=== PATIENT | male | born 1945 | race Caucasian/White ===

== ENCOUNTER 2016-12-07 14:36 | Emergency (ER) | payer OTHER ==
[~2016-12-07] VITALS: Ht 170.2 cm; Wt 70.0 kg
[2016-12-07 14:59] VITALS: Ht 170.2 cm; Wt 70.0 kg
[2016-12-07] MEDS ORDERED: SOD CHLORIDE 0.9% 2,170 ML IV ONE (15:30)
[2016-12-07 15:39] LABS: ADD SCAN DIFF NO
[2016-12-07] MEDS ORDERED: ATOR10TA65 PO (15:55)
[2016-12-07] MEDS ORDERED: LEVO125T75 PO (15:56)
[2016-12-07 16:00] LABS: ALANINE AMINOTRANSFERASE 33 IU/L (13-69); ALBUMIN 3.7 g/dl (3.3-4.9); ALKALINE PHOSPHATASE 89 IU/L (42-121); ANION GAP 14 (8-16); ASPARTATE AMINO TRANSFERASE 19 IU/L (15-46); BILIRUBIN,INDIRECT 0.4 mg/dl (0-1.1); BILIRUBIN,TOTAL 0.4 mg/dl (0.2-1.3); BLOOD UREA NITROGEN 17 mg/dl (7-20); CALCIUM 9.5 mg/dl (8.4-10.2); CARBON DIOXIDE 27 mmol/L (21-31); CHLORIDE 103 mmol/L (97-110); CREATININE 0.83 mg/dl (0.61-1.24); GLUCOSE 143 mg/dl (70-220); SODIUM 140 mmol/L (135-144); TOTAL PROTEIN 6.8 g/dl (6.1-8.1)
[2016-12-07 16:01] LABS: ALBUMIN/GLOBULIN RATIO 1.19
[2016-12-07 16:09] LABS: ABNORMAL IP MESSAGE 1; HEMOGLOBIN 16.1 g/dl (14.0-18.0); INR 1.22; MEAN CORPUSCULAR HEMOGLOBIN 30.8 pg (29.0-33.0); MEAN CORPUSCULAR HGB CONC 35.8 g/dl (32.0-37.0); MEAN PLATELET VOLUME 10.4 fl (7.4-10.4); PLATELET COUNT 153 10^3/UL (140-415); PROTIME 15.5 Sec (12.2-14.2); PT RATIO 1.2; RED BLOOD COUNT 5.23 10^6/ul (4.70-6.10); RED CELL DISTRIBUTION WIDTH 14.9 % (11.5-14.5); WHITE BLOOD COUNT 30.6 10^3/ul (4.8-10.8)
[2016-12-07 16:10] LABS: PARTIAL THROMBOPLASTIN TIME 22.4 Sec (25.0-35.0)
[2016-12-07 16:13] LABS: TROPONIN-I < 0.012 ng/ml (0.00-0.12)
--- NOTE | 2016-12-07 16:35 | RADRPT ---
PROCEDURE: XR Chest. CLINICAL INDICATION: Cough. Sepsis. TECHNIQUE: Single frontal view. COMPARISON: None. FINDINGS: There is air space and interstitial disease in the right mid and lower lung zones and a small right pleural effusion loculated laterally. There is mild left basilar atelectasis. There is no left ple ural effusion. The heart is mildly enlarged. There is no pneumothorax. IMPRESSION: 1. Right mid and lower lung zone pneumonia with small right pleural effusion. 2. Mild left basilar atelectasis. 3. Mild cardiomegaly. RPTAT: QQ .Jayy Rodriguez MD, MD Date Time Electronically viewed and signed by .Jayy Rodriguez MD, MD on 12/07/2016 16:34 .R/
--- NOTE | 2016-12-07 16:36 | RADRPT ---
PROCEDURE: CT Brain without. CLINICAL INDICATION: Possible sepsis. TECHNIQUE: A CT of the brain was performed on multidetector high-resolution CT scanner utilizing a xial sections from the skull base through the vertex without contrast. The scan was reviewed in sof t tissue brain and high frequency resolution bone algorithm windows. Images were reviewed on a high -resolution PACS workstation. One or more the following does reduction techniques were utilized: Aut omated exposure control, adjustment of the mA/ or kV according to patient's size, or use of iterativ e reconstruction technique. The exam CTDI = 42.60 mGy and the DLP = 720.23 mGy-cm. COMPARISON: None available. FINDINGS: The ventricles and sulci are mildly prominent indicative of volume loss. There is no intracranial he morrhage, mass effect or midline shift. No abnormal intra-axial or extra-axial fluid collections ar e seen. The egan/white matter differentiation is preserved. There are mild scattered foci of hypoattenuation in the white matter, which are nonspecific in etiol ogy but likely reflect chronic small vessel ischemic changes. There are mild intracranial vascular calcifications consistent with atherosclerosis. The visualized paranasal sinuses are essentially travis ar. IMPRESSION: 1. No acute intracranial hemorrhage, transcortical infarction or mass effect. If clinical concern p ersists consider brain MRI. 2. Mild intracranial atherosclerosis and chronic small vessel ischemic changes. 3. Mild generalized cerebral volume loss. RPTAT: JJ .Ene Beckwith MD, MD Date Time Electronically viewed and signed by .Ene Beckwith MD, MD on 12/07/2016 16:36 .N/
[2016-12-07] MEDS ORDERED: MEROPENEM 500 MG/100 ML (PMX) 100 ML IVPB STA (16:38)
[2016-12-07 16:49] VITALS: TEMP 97.8
[2016-12-07] MEDS ORDERED: VANCOMYCIN 1 GM (PMX) 250 ML IVPB SCH (17:00)
[2016-12-07 17:57] LABS: ADD UMIC NO; UR ASCORBIC ACID NEGATIVE (NEGATIVE); UR BILIRUBIN (Dip) NEGATIVE (NEGATIVE); UR BLOOD (Dip) NEGATIVE (NEGATIVE); UR CLARITY CLEAR (CLEAR); UR COLOR YELLOW (YELLOW); UR GLUCOSE (Dip) NEGATIVE (NEGATIVE); UR KETONES (Dip) NEGATIVE (NEGATIVE); UR LEUKOCYTE ESTERASE (Dip) NEGATIVE Leu/ul (NEGATIVE); UR NITRITE (Dip) NEGATIVE (NEGATIVE); UR SPECIFIC GRAVITY (Dip) 1.011 (1.003-1.030); UR TOTAL PROTEIN (Dip) NEGATIVE (NEGATIVE); UR UROBILINOGEN (Dip) NEGATIVE (NEGATIVE)
[2016-12-07 18:13] LABS: EOSINOPHILS # 1.2 10^3/ul (0.0-0.5); LYMPHOCYTES # 1.2 10^3/ul (0.8-2.9); MONOCYTE # 3.4 10^3/ul (0.3-0.9); NEUTROPHIL # 17.7 10^3/ul (1.6-7.5)
--- NOTE | 2016-12-07 20:24 | ERA ---
ER Documentation Chief Complaint Date/Time DATE: 12/07/16 TIME: 20:14 Chief Complaint Dizziness HPI The patient is a 71-year-old male, presenting to the ER from [facility] urgent care because he was pulseless for about a minute according to the EMS. The patient went to the urgent care today for follow-up after being discharged from [facility] 2 days ago. He complains of dizziness while he was waiting then possibly fainted. It was witnessed by his , he was moving all extremity and was incoherent. He was uncertain whether he stops breathing. he was quickly evaluated by the staff and was found to be pulseless for approximately 1 minute. No CPR was started nor medication was given. he was then transferred to the ER for further evaluation by EMS. According to the EMS , he was awake, alert when the EMS arrived. He simply complained of dizziness and did not remember the event. He denies headache, neck pain, chest pain, dyspnea, complaints of chronic cough for more than 3 months, denies abdominal pain, denies tongue bite, fecal incontinence or urine incontinence. He does not smoke nor drink Past medical history: History of thyroid cancer, hypothyroidism, dyslipidemia Past surgical history: Thyroidectomy ROS All systems reviewed and are negative except as per history of present illness. Medications Home Meds Reported Medications Levothyroxine Sodium* (Levothyroxine Sodium*) 125 Mcg Tablet, 125 MCG PO BEFORE BREAKFAST, #30 TAB 12/07/16 Atorvastatin Calcium (Atorvastatin Calcium) 10 Mg Tablet, 10 MG PO QHS, #30 TAB 12/07/16 Allergies Allergies: Coded Allergies: No Known Allergy (Unverified , 12/07/16) PMhx/Soc History of Surgery: Yes (thyroidectomy) Anesthesia Reaction: No Hx Neurological Disorder: No Hx Respiratory Disorders: No Hx Cardiac Disorders: No Hx Psychiatric Problems: No Hx Miscellaneous Medical Probl: Yes (thyroid ca) Hx Alcohol Use: No Hx Substance Use: No Hx Tobacco Use: No Smoking Status: Never smoker Physical Exam Vitals Vital Signs Date Time Temp Pulse Resp B/P Pulse Ox O2 Delivery O2 Flow Rate FiO2 12/07/16 16:49 97.8 99 17 110/68 94 Nasal Cannula 2.0 12/07/16 14:59 118 18 96/78 94 Physical Exam Const: No acute distress. Dehydrated Head: Atraumatic. Eyes: Normal Conjunctiva. ENT: Normal External Ears, Nose and Mouth. Neck: Full range of motion. No meningismus. Resp: Mild right basilar crackle Cardio: Regular tachycardic Abd: Soft, non distended, normal bowel sounds, non tender. Skin: No petechiae or rashes. Back: No midline or flank tenderness. Ext: No cyanosis, or edema. Neur: Awake and alert. No focal deficit Psych: Normal Mood and Affect. Result Diagram: 12/07/16 1520 12/07/16 1520 Results 24 hrs Laboratory Tests Test 12/07/16 15:20 12/07/16 17:40 12/07/16 17:55 White Blood Count 30.610^3/ul Red Blood Count 5.2310^6/ul Hemoglobin 16.1g/dl Hematocrit 45.0% Mean Corpuscular Volume 86.0fl Mean Corpuscular Hemoglobin 30.8pg Mean Corpuscular Hemoglobin Concent 35.8g/dl Red Cell Distribution Width 14.9% Platelet Count 25864^3/UL Mean Platelet Volume 10.4fl Neutrophils % 58.0% Band Neutrophils % 23.0% Lymphocytes % 4.0% Monocytes % 11.0% Eosinophils % 4.0% Neutrophils # 17.710^3/ul Lymphocytes # 1.210^3/ul Monocytes # 3.410^3/ul Eosinophils # 1.210^3/ul Prothrombin Time 15.5Sec Prothrombin Time Ratio 1.2 INR International Normalized Ratio 1.22 Activated Partial Thromboplast Time 22.4Sec Sodium Level 140mmol/L Potassium Level 4.0mmol/L Chloride Level 103mmol/L Carbon Dioxide Level 27mmol/L Anion Gap 14 Blood Urea Nitrogen 17mg/dl Creatinine 0.83mg/dl Glucose Level 143mg/dl Lactic Acid Level 3.5mmol/L 2.6mmol/L Calcium Level 9.5mg/dl Total Bilirubin 0.4mg/dl Direct Bilirubin 0.00mg/dl Indirect Bilirubin 0.4mg/dl Aspartate Amino Transf (AST/SGOT) 19IU/L Alanine Aminotransferase (ALT/SGPT) 33IU/L Alkaline Phosphatase 89IU/L Troponin I < 0.012ng/ml Total Protein 6.8g/dl Albumin 3.7g/dl Globulin 3.10g/dl Albumin/Globulin Ratio 1.19 Urine Color YELLOW Urine Clarity CLEAR Urine pH 6.0 Urine Specific [place] 1.011 Urine Ketones NEGATIVEmg/dL Urine Nitrite NEGATIVEmg/dL Urine Bilirubin NEGATIVEmg/dL Urine Urobilinogen NEGATIVEmg/dL Urine Leukocyte Esterase NEGATIVELeu/ul Urine Hemoglobin NEGATIVEmg/dL Urine Glucose NEGATIVEmg/dL Urine Total Protein NEGATIVEmg/dl Current Medications Medications (Trade) Dose Ordered Sig/Rosmery Route PRN Reason Start Time Stop Time Status Last Admin Dose Admin Sodium Chloride 2,170 ml @ 2,170 mls/hr BOLUS X1 ONCE IV 12/07/16 15:30 12/07/16 16:29 DC 12/07/16 15:42 Vancomycin HCl 250 ml @ 125 mls/hr ONCE IVPB 12/07/16 17:00 12/07/16 18:59 DC 12/07/16 17:22 Meropenem (Merrem 500 Mg/ 100 ml (Pmx)) 100 ml @ 200 mls/hr NOW STAT IVPB 12/07/16 16:38 12/07/16 17:07 DC 12/07/16 17:35 Procedures/MDM [place] [id number] Radiology Main Line: [phone] DIAGNOSTIC IMAGING REPORT Patient: ABBI WEISS : 1945 Age: 71 Sex: M MR #: [id number] DOS: 12/07/16 1507 Ordering MD: JUDIT YATES MD Location: E/R Room/Bed: PROCEDURE: CT Brain without. CLINICAL INDICATION: Possible sepsis. TECHNIQUE: A CT of the brain was performed on multidetector high-resolution CT scanner utilizing axial sections from the skull base through the vertex without contrast. The scan was reviewed in soft tissue brain and high frequency resolution bone algorithm windows. Images were reviewed on a high- resolution PACS workstation. One or more the following does reduction techniques were utilized: Automated exposure control, adjustment of the mA/ or kV according to patient's size, or use of iterative reconstruction technique. The exam CTDI = 42.60 mGy and the DLP = 720.23 mGy-cm. COMPARISON: None available. FINDINGS: The ventricles and sulci are mildly prominent indicative of volume loss. There is no intracranial hemorrhage, mass effect or midline shift. No abnormal intra- axial or extra-axial fluid collections are seen. The egan/white matter differentiation is preserved. There are mild scattered foci of hypoattenuation in the white matter, which are nonspecific in etiology but likely reflect chronic small vessel ischemic changes. There are mild intracranial vascular calcifications consistent with atherosclerosis. The visualized paranasal sinuses are essentially clear. IMPRESSION: 1. No acute intracranial hemorrhage, transcortical infarction or mass effect. If clinical concern persists consider brain MRI. 2. Mild intracranial atherosclerosis and chronic small vessel ischemic changes. 3. Mild generalized cerebral volume loss. RPTAT: JJ .Ene Beckwith MD, Date Time Electronically viewed and signed by .Ene Beckwith MD, MD on 12/07/2016 16: 36 .N/ CC: JUDIT YATES MD [place] [id number] Radiology Main Line: [phone] DIAGNOSTIC IMAGING REPORT Patient: ABBI WEISS : 1945 Age: 71 Sex: M MR #: [id number] DOS: 12/07/16 1625 Ordering MD: JUDIT YATES MD Location: E/R Room/Bed: PROCEDURE: XR Chest. CLINICAL INDICATION: Cough. Sepsis. TECHNIQUE: Single frontal view. COMPARISON: None. FINDINGS: There is air space and interstitial disease in the right mid and lower lung zones and a small right pleural effusion loculated laterally. There is mild left basilar atelectasis. There is no left pleural effusion. The heart is mildly enlarged. There is no pneumothorax. IMPRESSION: 1. Right mid and lower lung zone pneumonia with small right pleural effusion. 2. Mild left basilar atelectasis. 3. Mild cardiomegaly. RPTAT: QQ .Jayy Rodriugez MD, MD Date Time Electronically viewed and signed by .Jayy Rodriguez MD, on 12/07/2016 16:34 .R/ CC: JUDIT YATES MD EKG: Read by emergency physician Rate/Rhythm: Sinus tachycardia 106 beats/min QRS, ST, T-waves: No ST elevation, no T inversion, right smith axis Impression: Abnormal EKG MEDICAL MAKING DECISION: The patient is a 71-year-old male, presenting with acute severe sepsis, acute pneumonia, acute syncope, questionable cardiac arrhythmia. He was treated with normal saline 30 mL/kg IV, vancomycin IV, meropenem IV with good response. The differential diagnoses for acute pneumonia considered include but are not limited to asthma, COPD, pneumonia, pulmonary embolus, pleural effusion, congestive heart failure, arrhythmia, UTI, pyelonephritis. The differential diagnoses for acute syncope considered include but are not limited to bradyarrhythmia, tachyarrhythmias, aortic outflow obstruction, neurogenic including subarachnoid hemorrhage, orthostatic hypotension and all of its causes, hypoglycemia, dysautonomia, medications. Admit MDM: Patient's infectious symptoms have not stabilized and the patient is at risk of rapid decompensation. The patient will be admitted for careful hydration, antibiotic therapy, and infectious source control. Severe Sepsis criteria: Infectious source: Pneumonia End organ damage indicated by: Lactate > 2.0 mmol/L Sepsis Management: Time of recognition of severe sepsis/septic shock:1530 hrs. Within 3 hours of recognition: Blood cultures x 2 before broad-spectrum antibiotics: Yes 30 ml/kg NS bolus completed Initial lactate 3.5 Repeat lactate pending Critical Care: Critical care time 35 minutes Emergent fluid management while maintaining close respiratory support. Provision of immediate and broad-spectrum antibiotic therapy. Simultaneous assessment for possible sources in order to direct targeted therapy. Consideration for invasive and chemical support to prevent cardiopulmonary collapse. Septic Shock Assessment: Any lactic acid > 4.0 no Persistent hypotension (SBP < 90 or 40 mmHg drop, MAP < 65) despite 30 mL/kg IV fluid bolusno Departure Diagnosis: Primary Impression: Severe sepsis Additional Impressions: Pneumonia Syncope Cardiac arrhythmia Condition: Stable Comments I discussed the findings with the patient. I discussed the patient with the on- call physician Dr. Deleon at 5 pm and multiple times after. who was made aware of the lab, the treatment, the patient condition. The patient is transferred to [facility] JUDIT YATES MD Dec 07, 2016 20:24
[2016-12-07 21:20] VITALS: BP 154/95; PULSE 116; RESP 24
== END 2016-12-07 21:25 | disposition short-term general hospital (02) ==
LOC: E/R 14:36
DX: A41.9 Sepsis, unspecified organism (principal); R65.20 Severe sepsis without septic shock; E03.9 Hypothyroidism, unspecified; R40.2142 Coma scale, eyes open, spontaneous, at arrival to emergency department; R40.2252 Coma scale, best verbal response, oriented, at arrival to emergency department; R40.2362 Coma scale, best motor response, obeys commands, at arrival to emergency department; Z85.850 Personal history of malignant neoplasm of thyroid
CPT/HCPCS: 70450; 71010; 80053; 81003; 83605; 84484; 85025; 85610; 85730; 87040; 87086; 93005; 96361; 96374; 96375; 99291; J2185; J3370; J7030